=== PATIENT | male | born 1955 | race Caucasian/White ===

== ENCOUNTER → 2016-08-07 | Outpatient (CLI) | payer OTHER ==
[~2016-08-07] MED LIST: ALBUAER19 INH; ATEN100T PO; LSN20 PO; MOME100A INH
[2016-08-07 13:17] LABS: ALB/GLOB RATIO 1.1 (0.9-2); ALKALINE PHOSPHATASE 93 U/L (45-117); ALT/SGPT 63 U/L (12-78); AST/SGOT 32 U/L (15-37); BLOOD UREA NITROGEN 15 mg/dl (7-18); BUN/CREATININE RATIO 18.2 (10-20); CALCIUM 8.9 mg/dl (8.5-10.1); CARBON DIOXIDE 31 mmol/L (21-32); CHLORIDE 110 mmol/L (98-107); CHOLESTEROL 205 mg/dl (0-200); CHOLESTEROL/HDL RATIO 5.1; GLUCOSE 99 mg/dl (70-99); HDL CHOLESTEROL 40 mg/dl; LDL CHOLESTEROL CALCULATED 145 mg/dl; POTASSIUM 4.1 mmol/L (3.5-5.1); SODIUM 147 mmol/L (136-145); TRIGLYCERIDES 102 mg/dl (0-150); VERY LOW DENSITY LIPOPROT CALC 20 mg/dl
[2016-08-07 13:46] LABS: ESTIMATED AVERAGE GLUCOSE 126 mg/dl; HA1C FLAG Normal (Normal)
== END | disposition home or self-care (01) ==
LOC: C.LABPVFM 08:17
PROVIDERS: ATTEND Family Medicine
DX: I10 Essential (primary) hypertension (principal); R73.9 Hyperglycemia, unspecified

== ENCOUNTER → 2017-05-25 | Outpatient (CLI) | payer OTHER ==
--- NOTE | 2017-05-25 11:46 | DIAGNOSTIC IMAGING REPORT ---
TWO VIEW CHEST CLINICAL HISTORY: Emphysema. Alpha-1 antitrypsin deficiency. FINDINGS: PA and lateral chest radiographs are compared to study dated 06/03/2012. The PA view is degraded by patient rotation. The cardiomediastinal silhouette is unremarkable. Emphysema and chronic interstitial thickening are similar to previous. No airspace consolidation or pleural effusion is identified. Left basilar atelectasis is observed. There is a 1.1 cm nodule projecting over the left midlung. There is no pneumothorax. The skeletal structures are osteopenic. The bony thorax appears intact. IMPRESSION: 1. Emphysematous change with no acute cardiopulmonary abnormality. 2. A 1.1 cm nodular density projects over the left midlung. Follow-up with a chest CT is recommended for further assessment. Electronically signed by: Rico Curtis M.D. 05/25/2017 11:45 AM Dictated Date/Time: 05/25/2017 11:44 AM
== END | disposition home or self-care (01) ==
LOC: C.RAD1850 11:26
PROVIDERS: ATTEND Internal Medicine Pulmonary Disease
DX: E88.01 Alpha-1-antitrypsin deficiency (principal); J43.9 Emphysema, unspecified; R91.1 Solitary pulmonary nodule

== ENCOUNTER → 2017-06-01 | Outpatient (CLI) | payer OTHER ==
--- NOTE | 2017-06-01 12:37 | DIAGNOSTIC IMAGING REPORT ---
(CHEST) THORAX WITHOUT CT DOSE: 1001.98 mGy.cm HISTORY: Lung nodule R91.1 Lung [id number] TECHNIQUE: Multiaxial CT images of the chest were performed without contrast. A dose lowering technique was utilized adhering to the principles of ALARA. COMPARISON: Chest series 05/25/2017 FINDINGS: Pleural-based 12 x 7 mm nodule superior segment left lower lobe. This is not seen on a prior chest series of 2013 but is identified on the current chest series. Margins are slightly irregular. PET scan is recommended as follow-up. Lungs otherwise appear clear. There is slight peribronchial thickening throughout both hemithoraces. Several small mediastinal nodes are present. There is no significant adenopathy. There is no additional pulmonary nodularity. Mild emphysematous changes noted. IMPRESSION: 1. Pleural-based 12 x 7 mm nodule superior segment left lower lobe. 2. Mild emphysematous change with no additional nodularity or significant adenopathy. 3. PET scan is recommended to evaluate for potential metabolic activity of this pleural-based nodule The above report was generated using voice recognition software. It may contain grammatical, syntax or spelling errors. Electronically signed by: Leno Cid M.D. 06/01/2017 12:35 PM Dictated Date/Time: 06/01/2017 12:29 PM
== END | disposition home or self-care (01) ==
LOC: C.CTS 11:54
PROVIDERS: ATTEND Internal Medicine Pulmonary Disease
DX: R91.1 Solitary pulmonary nodule (principal)

== ENCOUNTER → 2017-06-14 | Outpatient (CLI) | payer OTHER ==
--- NOTE | 2017-06-14 10:26 | DIAGNOSTIC IMAGING REPORT ---
PET/CT SKULL-THIGH HISTORY: Lung nodule PULMONARY NODULE TECHNIQUE: PET/CT was performed from the base of the skull through the pelvis following the intravenous administration of 14.8 mCi of [id number]. Non-contrast CT imaging was performed over the same range without breath-hold for attenuation correction of PET images and anatomic correlation, but not for primary interpretation as it is not of standard diagnostic quality. CT DOSE: COMPARISON: CT chest 06/01/2017 FINDINGS: HEAD AND NECK: There is no FDG-avid disease or significant lymphadenopathy in the imaged portions of the head and the neck. CHEST: There is no FDG-avid disease in the chest. There is no axillary, mediastinal, or hilar lymphadenopathy. There is no pleural or pericardial effusion. There is no air-space disease or suspicious lung nodule. Pleural-based nodular density. Segment left lower lobe shows no increase in metabolic activity. It has diminished in volume compared to the prior study now the maximum dimension of 7 mm. Lungs otherwise appear clear. ABDOMEN/PELVIS: Below the diaphragm, tracer is distributed physiologically in the gastrointestinal and genitourinary tracts. There is no significant lymphadenopathy and no FDG-avid disease. Intense activity overlying the distal left ureter considered to be an anatomic variation MUSCULOSKELETAL: There is no FDG-avid or destructive bone lesion. IMPRESSION: There is no definite evidence of recurrent FDG-avid disease. The pleural based nodule superior segment left lower lobe shows no activity and is mildly diminished in size in the prior CT exam. This is considered a low suspicion scan with a follow-up CT of the chest recommended in one year. The above report was generated using voice recognition software. It may contain grammatical, syntax or spelling errors. Electronically signed by: Leno Cid M.D. 06/14/2017 10:24 AM Dictated Date/Time: 06/14/2017 10:01 AM
== END | disposition home or self-care (01) ==
LOC: C.PET 07:16
PROVIDERS: ATTEND Internal Medicine Pulmonary Disease
DX: R91.1 Solitary pulmonary nodule (principal)